=== PATIENT | female | born 1955 | race Caucasian/White ===

== ENCOUNTER 2017-01-16 12:44 | Emergency (ER) | payer OTHER ==
[~2017-01-16] VITALS: Ht 157.5 cm; Wt 89.9 kg
[~2017-01-16 12:44] MED LIST: CIPRO500 MG PO; Ecotrin PO; GEODON40 MG PO; MACROBID100 MG PO; MOBIC7.5 MG PO; NEXIUM40 MG PO; NIRAVAM0.5 MG PO; NOHOMEMEDS; SERTRALINE HCL50 MG PO; TRAMADOL HCL50 MG PO; TRAZODONE HCL100 MG PO; ULTRACET1 TABLET PO; ULTRAM50 MG PO; ZANTAC300 MG PO
[2017-01-16] MEDS ORDERED: BACTROBAN OINTM22 GM TP (14:22)
[2017-01-16] MEDS ORDERED: MEDROL DOSEPAK4 MG PO (14:24)
[2017-01-16 15:09] VITALS: BP 136/92
== END 2017-01-16 15:09 | disposition home or self-care (01) ==
LOC: EME 12:44
DX: L01.00 Impetigo, unspecified (principal); L30.9 Dermatitis, unspecified; Z88.6 Allergy status to analgesic agent; F17.200 Nicotine dependence, unspecified, uncomplicated
CPT/HCPCS: 99281; 99282